=== PATIENT | female | born 1970 | race American Indian/Alaskan Native ===

== ENCOUNTER 2016-04-03 03:29 | Emergency (ER) | payer SELFPAY ==
[2016-04-03] MEDS ORDERED: TYLENOL PO ONE (08:26)
[2016-04-03] MEDS ORDERED: NORVASC PO ONE (08:26)
[2016-04-03 09:08] VITALS: BP 162/105
--- NOTE | 2016-04-03 09:48 | Emergency Department Report ---
ED Headache HPI - General Chief Complaint: Headache Stated Complaint: RESENDIZ Time Seen by Provider: 04/03/16 08:19 - History of Present Illness Initial Comments: 45-year-old female past medical history hypertension presents with complaint of 2-3 days of intermittent waxing and waning headache. Patient states it was gradual onset denies any blurry vision nausea no vomiting no chest pain no palpitations no shortness of breath denies any paresthesias no slurred speech no hemiparesis symptoms reported. Denies any head trauma. Denies any neck rigidity. States that it was frontal throbbing, has not taken anything yet for the headache in the last several days. She states that she ran out of her amlodipine prescription and needs a refill. On exam patient is awake alert and oriented 3. Ambulatory without any assistance. Denies any smoking alcohol or drug use. Currently headache a 5 out of 6. denies any numbness or tingling UE/ LE b/l. Head Injury Location: frontal Recent Head Trauma: occasional headaches Associated Symptoms: denies symptoms Allergies/Adverse Reactions: Allergies No Known Allergies Allergy (Unverified 07/06/15 10:40) Home Medications: Ambulatory Orders Aspirin EC [Aspirin Enteric Coated TAB] 325 mg PO QDAY #30 tablet. 07/06/15 traMADol [Ultram 50 MG tab] 50 mg PO Q6HR PRN #20 tablet 07/06/15 Acetaminophen [Acetaminophen TAB] 500 mg PO Q6HR #30 tablet 04/03/16 amLODIPine [Norvasc] 10 mg PO DAILY #30 tab 04/03/16 ED Review of Systems ROS: Stated complaint: RESENDIZ Other details as noted in HPI Constitutional: denies: chills, fever Eyes: denies: eye pain, eye discharge, vision change ENT: denies: ear pain, throat pain Respiratory: denies: cough, shortness of breath, wheezing Cardiovascular: denies: chest pain, palpitations Endocrine: no symptoms reported Gastrointestinal: denies: abdominal pain, nausea, diarrhea Genitourinary: denies: urgency, dysuria, discharge Musculoskeletal: denies: back pain, joint swelling, arthralgia Skin: denies: rash, lesions Neurological: headache. denies: weakness, paresthesias Psychiatric: denies: anxiety, depression Hematological/Lymphatic: denies: easy bleeding, easy bruising ED Past Medical Hx - Past Medical History Previous Medical History?: Yes Hx Hypertension: Yes Additional medical history: OBESITY - Surgical History Additional Surgical History: - Social History Smoking Status: Never Smoker Substance Use Type: None - Medications Home Medications: Home Medications Medication Instructions Recorded Confirmed Last Taken Type Aspirin EC [Aspirin Enteric Coated 325 mg PO QDAY #30 tablet. 07/06/15 Unknown Rx TAB] traMADol [Ultram 50 MG tab] 50 mg PO Q6HR PRN #20 tablet 07/06/15 Unknown Rx Acetaminophen [Acetaminophen TAB] 500 mg PO Q6HR #30 tablet 04/03/16 Unknown Rx amLODIPine [Norvasc] 10 mg PO DAILY #30 tab 04/03/16 Unknown Rx ED Physical Exam - General Limitations: No Limitations General appearance: alert, in no apparent distress - Head Head exam: Present: atraumatic, normocephalic - Eye Eye exam: Present: normal appearance, PERRL, EOMI - ENT ENT exam: Present: mucous membranes moist - Neck Neck exam: Present: normal inspection - Respiratory Respiratory exam: Present: normal lung sounds bilaterally. Absent: respiratory distress - Cardiovascular Cardiovascular Exam: Present: regular rate, normal rhythm. Absent: systolic murmur, diastolic murmur, rubs, gallop - GI/Abdominal GI/Abdominal exam: Present: soft, normal bowel sounds - Extremities Exam Extremities exam: Present: normal inspection - Back Exam Back exam: Present: normal inspection - Neurological Exam Neurological exam: Present: alert, altered, oriented X3, CN II-XII intact, normal gait - Expanded Neurological Exam Expanded Patient oriented to: Present: person, place, time Speech: Present: fluid speech Cranial nerves: EOM's Intact: Normal, Tongue Deviation: Normal, Facial Sensation : Normal Cerebellar function: Finger to Nose: Normal, Heel to [place]: Normal, Romberg: Normal Upper motor neuron: Curtis Neglect: Normal, Pronator Drift: Normal Sensory exam: Upper Extremity Light Touch: Normal, Upper Extremity Pin Prick: Normal, UE 2 Point Discrimination: Normal, Lower Extremity Light Touch: Normal, Lower Extremity Pin Prick: Normal, LE 2 Point Discrimination: Normal Motor strength exam: RUE: 5, LUE: 5, RLE: 5, LLE: 5 DTR: bicep (R): 3+, bicep (L): 3+, tricep (R): 3+, tricep (L): 3+, knee (R): 3+ , knee (L): 3+, ankle (R): 3+, ankle (L): 3+ Best Eye Response ([place]): (4) open spontaneously Best Motor Response ([place]): (6) obeys commands Best Verbal Response ([place]): (5) oriented Benjie Total: 15 - Psychiatric Psychiatric exam: Present: normal affect, normal mood - Skin Skin exam: Present: warm, dry, intact, normal color. Absent: rash ED Course Vital Signs 04/03/16 04/03/16 04/03/16 03:41 06:02 07:37 Temperature 98.5 F 98.2 F 98.2 F Pulse Rate 100 H 97 H 97 H Respiratory 18 18 18 Rate Blood Pressure 159/113 Blood Pressure 161/110 170/105 [Right] O2 Sat by Pulse 100 98 100 Oximetry 04/03/16 04/03/16 08:36 09:07 Temperature Pulse Rate 97 H Respiratory Rate Blood Pressure 170/105 Blood Pressure 162/105 [Right] O2 Sat by Pulse Oximetry ED Medical Decision Making - Medical Decision Making A/P: Headache 1-blood pressure mildly elevated. Patient has not been taking her amlodipine per her hisotry. We administered 1 dose of 10 mg Norvasc and patient's blood pressure has responded appropriately, from 170/105 to 156/103 over last 2 hours. Pt currently asymptomatic. 2-headache symptoms have completely resolved 3-tylenol when necessary for headache 4-will refill patient's amlodipine prescription and refer her to primary care. Patient denies any blurred vision chest pain palpitations shortness of breath no nausea no vomiting no abdominal pain denies any paresthesias no signs of paralysis and upper lower extremities. No overt neurological deficits on clinical exam, CN 1-12 grossly intact. b/l UE/lE strength fully intact. Critical care attestation.: If time is entered above; I have spent that time in minutes in the direct care of this critically ill patient, excluding procedure time. ED Disposition Clinical Impression: Headache Qualifiers: Headache type: tension-type Headache chronicity pattern: acute headache Intractability: not intractable Qualified Code(s): G44.209 - Tension-type headache, unspecified, not intractable Disposition: DISCHARGED TO HOME OR SELFCARE Is pt being admited?: No Does the pt Need Aspirin: No Condition: Stable Instructions: Acute Headache (ED), Amlodipine (By mouth), Hypertension (ED) Prescriptions: Acetaminophen [Acetaminophen TAB] 500 mg PO Q6HR #30 tablet amLODIPine [Norvasc] 10 mg PO DAILY #30 tab Referrals: PRIMARY CARE, [Primary Care Provider] - 3-5 Days [facility] [Outside] - 3-5 Days TRACY HUSAIN MD [Staff Physician] - 3-5 Days Forms: Work/School Release Form(ED) Time of Disposition: 09:50
== END 2016-04-03 09:58 | disposition home or self-care (01) ==
LOC: ED 03:29
DX: G44.209 Tension-type headache, unspecified, not intractable (principal); I10 Essential (primary) hypertension
CPT/HCPCS: 99282